=== PATIENT | female | born 1955 | race Caucasian/White ===

== ENCOUNTER 2017-02-25 10:31 | Emergency (ER) | payer OTHER ==
[~2017-02-25] VITALS: Ht 172.7 cm; Wt 79.8 kg
[2017-02-25] MEDS ORDERED: CEFTRIAXONE 1,000 MG IM ONE (11:30)
[2017-02-25] MEDS ORDERED: FAMOTIDINE 20 MG TABLET PO ONE (11:30)
[2017-02-25] MEDS ORDERED: DIPHENHYDRAMINE 25 MG CAPSULE PO ONE (11:30)
[2017-02-25] MEDS ORDERED: CEFAZOLIN 1,000 MG IM ONE (12:00)
[2017-02-25] MEDS ORDERED: DIPHENHYDRAMINE 50 MG CAPSULE ONE (12:23)
[2017-02-25] MEDS ORDERED: FAMOTIDINE 20 MG TABLET ONE (12:23)
[2017-02-25] MEDS ORDERED: CEFAZOLIN 1,000 MG ONE (12:24)
[2017-02-25] MEDS ORDERED: DIPHENHYDRAMINE 25 MG CAPSULE ONE (12:33)
[2017-02-25 13:02] VITALS: BP 131/78
== END 2017-02-25 13:53 ==
LOC: ED 13:30
DX: L03.113 Cellulitis of right upper limb (principal); X58.XXXA Exposure to other specified factors, initial encounter; Y93.89 Activity, other specified; Y92.89 Other specified places as the place of occurrence of the external cause; Y99.8 Other external cause status
CPT/HCPCS: 29125; 73130; 96372; 99284; J0690; Q0163